=== PATIENT | female | born 1985 | race Caucasian/White ===

== ENCOUNTER → 2017-11-13 | Outpatient (CLI) | payer BC ==
[2017-11-13 14:13] LABS: URINE APPEARANCE CLEAR (CLEAR); URINE BILIRUBIN NEG (NEG); URINE BLOOD HGB NEG (NEG); URINE COLOR DK YELLOW; URINE GLUCOSE(DIPSTICK) NEG (NEG); URINE KETONES TRACE (NEG); URINE LEUKOCYTE ESTERASE NEG (NEG); URINE NITRITE NEG (NEG); URINE PROTEIN(DIPSTICK) NEG (NEG); URINE SPECIFIC GRAVITY 1.027 (1.000-1.030); UROBILINOGEN NEG (NEG)
[2017-11-13 14:25] LABS: MANUAL MICROSCOPIC REQUIRED? NO; REVIEW REQ? NO
[2017-11-13 14:51] LABS: BASO % 0.1 %; BASO ABS # 0.01 K/uL (0-0.2); COMPLETE YES; EOS ABS # 0.15 K/uL (0-0.5); HEMATOCRIT 34.9 % (37-47); HEMOGLOBIN 12.2 g/dL (12.0-16.0); IG# 0.02 K/uL (0.00-0.02); IG% 0.3 %; LYMPH % 29.4 %; LYMPH ABS # 2.17 K/uL (1.2-3.4); MEAN PLATELET VOLUME 9.3 fL (7.4-10.4); MONO % 5.4 %; NEUT % 62.8 %; NEUT ABS # 4.62 K/uL (1.4-6.5); PLATELET COUNT 190 K/uL (130-400); RED BLOOD COUNT 4.06 M/uL (4.2-5.4); RED CELL DISTRIBUTION WIDTH CV 13.7 % (11.5-14.5); RED CELL DISTRIBUTION WIDTH SD 43.3 fL (36.4-46.3); WHITE BLOOD COUNT 7.37 K/uL (4.8-10.8)
[2017-11-13 15:05] LABS: RUBELLA SCREEN IgG (AT CCH) IMMUNE (IMMUNE)
[2017-11-13 15:07] LABS: HEPATITIS B SURFACE AG NEG (NEG)
[2017-11-14 00:51] LABS: RAPID PLASMA REAGIN NONREACTIVE (NONREACT)
== END | disposition home or self-care (01) ==
LOC: C.LAB1850 12:57
DX: Z34.82 Encounter for supervision of other normal pregnancy, second trimester (principal)

== ENCOUNTER → 2017-12-11 | Outpatient (CLI) | payer BC | END | disposition home or self-care (01) | LOC: C.LAB1850 09:05 | PROVIDERS: ATTEND Obstetrics & Gynecology | DX: Z34.82 Encounter for supervision of other normal pregnancy, second trimester (principal); Z3A.00 Weeks of gestation of pregnancy not specified ==

== ENCOUNTER → 2018-02-24 | Outpatient (CLI) | payer BC ==
[2018-02-24 10:14] LABS: HEMOGLOBIN 11.7 g/dL (12.0-16.0)
== END | disposition home or self-care (01) ==
LOC: C.LAB1850 09:09
PROVIDERS: ATTEND Obstetrics & Gynecology
DX: Z34.83 Encounter for supervision of other normal pregnancy, third trimester (principal)

== ENCOUNTER 2019-08-26 18:44 | Inpatient (IN) ==
[2019-08-26] MEDS ORDERED: LACTATED RINGER'S 1,000 ML IV PRN (18:54)
[2019-08-26] MEDS ORDERED: OXYTOCIN 30 UNITS/500 ML BAG IV PRN ×2 (18:54→19:59)
[2019-08-26 19:13] LABS: Hematocrit (blood only) 35.3 % (37-47); Hemoglobin 11.9 g/dL (12.0-16.0); Mean Corpuscular Hemoglobin 31.1 pg (25-34); Mean Corpuscular Volume 92.2 fL (80-100); Mean Platelet Volume 9.5 fL (7.4-10.4); Platelet Count 163 K/uL (130-400); RDW Coefficient of Variation 14.4 % (11.5-14.5); RDW Standard Deviation 48.5 fL (36.4-46.3); Red Blood Count 3.83 M/uL (4.2-5.4); White Blood Count 11.53 K/uL (4.8-10.8)
[2019-08-26 19:18] LABS: Mean Corpuscular Hgb Conc 33.7 g/dL (32-36)
[2019-08-26] MEDS ORDERED: fentaNYL citrate 100 MCG/2 ML VIAL ONE (19:26)
[2019-08-26] MEDS ORDERED: ePHEDrine sulfate 50 MG/ML AMP ONE (19:26)
[2019-08-26] MEDS ORDERED: BUPIVACAINE 0.25% 30 ML VIAL ONE (19:27)
[2019-08-26] MEDS ORDERED: fentaNYL 2MCG/ML ROPIV 1.25MG/ML 100 ML BAG EPI ONE (19:27)
--- NOTE | 2019-08-26 19:43 | Anesthesiology Consultation ---
Date of Service August 26, 2019 Assessment & Plan Chart Review Chart Review: Acceptable Risk for Surgery, Patient NOT seen in Pre Admission Testing and Acceptable Risk for Labor Epidural Consults Requested none ASA ASA2 Proposed Anesthesia Anesthesia Type: Labor Epidural Risk / Benefits Reviewed With: PT / POA / Parent / Guardian, Accepts Plan and I nformed Consent Obtained History Height/Weight Height: 5 ft 8 in Weight: 90 kg Allergies Allergy/AdvReac Type Severity Reaction Status Date / Time No Known Drug Allergies Allergy Verified 08/26/19 11:02 Medications Home Medications Medication Instructions Recorded Confirmed Last Taken 1 tab PO DAILY 05/26/19 08/26/19 Unknown vitamin,calcium,zkdianha-[id number]-xtdyf acid tablet acetaminophen PO 07/20/19 08/26/19 Unknown famotidine PO 07/20/19 08/26/19 Unknown Active Medications Generic Name Dose Route Start Last Admin Trade Name Freq PRN Reason Stop Dose Admin Lactated Ringer's 1,000 mls @ 125 mls/hr 08/26/19 18:54 08/26/19 19:24 Lr IV 08/28/19 18:53 125 mls/hr .Q8H PRN Infusion L&D Protocol Protocol NPO Date Last Intake of Fluids: 08/26/19 Time Last Intake of Fluids: 18:30 Date Last Intake of Solids: 08/26/19 Time Last Intake of Solids: 14:00 Past Medical History Medical History History of anxiety History of asthma History of osteoarthritis History of ovarian cyst History of varicella Exercise / Class Metabolic Activity II 4-5 Yardwork/Stairs/Walk up hill Past Family History Family History Father Hypertension Dyslipidemia Grandfather (Paternal) Kidney disease Grandmother (Maternal) Ovarian cancer Mother History of ovarian cyst Thyroid disease Aunt Uterine cancer maternal Past Surgical History Surgical History S/P knee surgery S/P wisdom tooth extraction Past Anesthesia History No Hx of Anesthesia Complications and No Family Hx of Anesthesia Complications History of PONV No Hx of PONV and No Hx of Motion Sickness Social History Smoking Status: Former smoker Hx Alcohol Use: No Hx Substance Use: No Physical Exam Vital Signs Last Vital Signs Temp 36.4 C L 08/26/19 18:54 Pulse 84 08/26/19 19:35 Resp 20 08/26/19 18:54 BP 121/77 08/26/19 18:54 Pulse Ox 99 08/26/19 19:35 Constitutional + obese ENMT Mouth: no dentition abnormality Thyromental Distance: < 3.5 Finger Breadths Mallampati Class: II Neck normal visual inspection and trachea midline; neck extension not limited Respiratory normal respiratory effort Auscultation: lungs clear to auscultation bilaterally Cardiovascular Rate/Rhythm: regular rate and regular rhythm Heart Sounds: no murmur Musculoskeletal Spine: lumbar spine normal to inspection; normal cervical ROM Neurologic moves all extremities Motor/Sensory: no sensory deficit Psychiatric Orientation: alert and oriented x 3 Testing Laboratory Results 08/26/19 19:05
[2019-08-26] MEDS ORDERED: BUTORPHANOL TARTRATE 1 MG/ML VIAL ONE (19:46)
[2019-08-26] MEDS ORDERED: HYDROCORTISONE ACETATE 25 MG SUPP PR PRN (19:59)
[2019-08-26] MEDS ORDERED: BISACODYL 10 MG SUPP PR PRN (19:59)
[2019-08-26] MEDS ORDERED: OXYCODONE/ACETAMINOPHEN 5mg/325mg TAB PO PRN (19:59)
[2019-08-26] MEDS ORDERED: BENZOCAINE 20% AER SPR 82.5 GM CAN EXT PRN (19:59)
[2019-08-26] MEDS ORDERED: DIPHTHERIA/TETANUS/PERTUSSIS 0.5 ML SYR/VIAL IM ONE (19:59)
[2019-08-26] MEDS ORDERED: SUPERCREAM 0.870% 15 GM JAR EXT PRN (19:59)
[2019-08-26] MEDS ORDERED: LACTATED RINGER'S 1,000 ML IV SCH (20:00)
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
[2019-08-26 20:22] LABS: Base Excess Cord Arterial Bld 0.1 mEq/L (-9-1.8); CO2 Cord Arterial Blood 43 mmHg (39.1-73.5); HCO3 Cord Arterial Blood 25 mmol/L (19.7-28.5); pH Cord Arterial Blood 7.39 (7.1-7.38)
[2019-08-26 20:26] LABS: Cord Venous Blood HCO3 22 mmol/L (18.4-26.8); Cord Venous Blood PCO2 30 mmHg (30.4-57.2); Cord Venous Blood PO2 40 mmHg (14.1-43.3); Cord Venous Blood pH 7.49 (7.20-7.44)
[2019-08-26] MEDS: DOCUSATE SODIUM 100 MG CAP PO SCH (22:20)
[2019-08-26] MEDS: IBUPROFEN 600 MG TAB PO PRN (23:09)
[2019-08-27] MEDS: IBUPROFEN 600 MG TAB PO PRN ×4 (03:21→16:59)
[2019-08-27] MEDS: ACETAMINOPHEN 325 MG TAB PO PRN ×2 (06:41→12:05)
--- NOTE | 2019-08-27 07:06 | Obstetrical Progress Note ---
Date of Service August 27, 2019 PPD#1 from Minimal bleeding, pain well controlled. No ext pain Assessment & Plan (1) Spontaneous vaginal delivery: day 1. Cont current care Physical Exam Respiratory normal respiratory effort, lungs clear to auscultation Gastrointestinal (Abdomen) uterus tone firm, ext negative Results & Data Vital Signs (Past 12 Hours) Vital Signs Temp Pulse Pulse Resp BP BP Pulse Ox 08/27/19 04:15 98.8 F 75 18 106/69 08/26/19 23:05 97.9 F 77 16 111/68 08/26/19 21:40 98.4 F 72 20 120/64 95 08/26/19 21:35 72 114/75 95 08/26/19 21:30 72 94 08/26/19 21:29 72 94 08/26/19 21:25 81 92 08/26/19 21:24 78 93 08/26/19 21:20 73 20 117/77 92 08/26/19 21:16 76 93 08/26/19 21:15 73 96 08/26/19 21:10 72 97 08/26/19 21:05 72 20 116/74 97 08/26/19 21:00 69 97 08/26/19 20:55 78 97 08/26/19 20:50 78 20 116/75 97 08/26/19 20:45 74 97 08/26/19 20:40 73 97 08/26/19 20:35 74 20 114/75 97 08/26/19 20:32 77 94 08/26/19 20:30 71 95 08/26/19 20:25 82 96 08/26/19 20:20 72 20 119/78 97 08/26/19 20:15 72 96 08/26/19 20:10 73 96 08/26/19 20:08 86 93 08/26/19 20:05 98.1 F 72 18 119/78 97 08/26/19 20:00 75 95 08/26/19 19:55 78 93 08/26/19 19:50 81 97 08/26/19 19:48 95 H 142/70 H 08/26/19 19:46 99 H 91 08/26/19 19:45 103 H 98 08/26/19 19:40 97 H 97 08/26/19 19:39 84 90 10/31/19 19:35 84 99 08/26/19 19:25 96 H 99 08/26/19 19:20 83 99
[2019-08-27 07:25] LABS: Hematocrit (blood only) 33.6 % (37-47); Hemoglobin 11.5 g/dL (12.0-16.0); Mean Corpuscular Hemoglobin 31.3 pg (25-34); Mean Corpuscular Hgb Conc 34.2 g/dL (32-36); Mean Corpuscular Volume 91.3 fL (80-100); Mean Platelet Volume 9.2 fL (7.4-10.4); Platelet Count 153 K/uL (130-400); RDW Coefficient of Variation 14.2 % (11.5-14.5); RDW Standard Deviation 47.9 fL (36.4-46.3); Red Blood Count 3.68 M/uL (4.2-5.4); White Blood Count 10.53 K/uL (4.8-10.8)
[2019-08-27] MEDS: DOCUSATE SODIUM 100 MG CAP PO SCH ×2 (08:48→20:42)
[2019-08-27] MEDS: PRENATAL VITAMIN 1 TAB PO SCH (08:48)
[2019-08-27] MEDS ORDERED: BISACODYL 5 MG TABEC PO SCH (20:00)
[2019-08-28] MEDS: IBUPROFEN 600 MG TAB PO PRN ×2 (02:32→10:55)
--- NOTE | 2019-08-28 07:22 | Obstetrical Progress Note ---
Date of Service August 28, 2019 Assessment & Plan (1) Spontaneous vaginal delivery: routine care. f/u 6wks pp check. instructions reviewed. d/c home. Day #:: 2 Subjective Ambulation: ambulating normally Voiding: no voiding problems Diet Tolerance:: regular diet Lochia:: Small Feeding Type:: breast feeding no pain issues Physical Exam Constitutional WD/WN, vitals as above Respiratory normal respiratory effort, lungs clear to auscultation Cardiovascular Rate/Rhythm: regular rate and regular rhythm Gastrointestinal (Abdomen) Inspection/Auscultation: abdomen normal to inspection Percussion/Palpation: abdomen soft fundus firm 2 cm below umbilicus Musculoskeletal nt calves no edema Neurologic grossly normal Psychiatric A+Ox3, euthymic affect Results & Data Vital Signs (Past 12 Hours) Vital Signs Temp Pulse Resp BP 08/28/19 00:01 97.7 F 64 18 111/70
[2019-08-28 08:22] LABS: Hematocrit (blood only) 37.5 % (37-47); Hemoglobin 12.2 g/dL (12.0-16.0)
[2019-08-28] MEDS: DOCUSATE SODIUM 100 MG CAP PO SCH (08:48)
[2019-08-28] MEDS: PRENATAL VITAMIN 1 TAB PO SCH (08:48)
== END 2019-08-28 11:35 | disposition home or self-care (01) | DRG 807 ==
LOC: OPB 18:44 → 4S2 18:46